=== PATIENT | female | born 1955 | race Caucasian/White ===

== ENCOUNTER → 2017-02-17 | Outpatient (CLI) | payer BC ==
[~2017-02-17] MED LIST: ALLEGRA-D1 TAB.SR1 PO; ALLERGY SHOTS; ASTELIN137 MCG INH; CLARITIN D PO; DYMISTA NASAL S23 GM NS; NASOCORT; SINGULAIR PO; VAGIFEM10 MCG VG; ZYRTEC-D TABLE1 EACH PO
--- NOTE | ~2017-02-17 | MY11 ---
[facility] A Service of [facility] RADIOLOGY TEXT RESULTS PATIENT: HOSSEIN CARLSON LOCATION: [facility] : 57 UNIT #: [id number] AGE: [address]: LEVY BOLDEN MD SEX: F ORDER DR: [id number] [place] [id number] O MR#: [id number] Acc #: [id number] NAME: HOSSEIN CARLSON : 1955 SEX: F STUDY DATE/TIME: 02/17/2017 8:39 UNIT: [facility] ROOM: STUDY DESCRIPTION: MY Mammogram Screening Dig Hardy Attending Physician: Levy Bolden M.D. Referring Physician: Levy Bolden M.D. Ordering Physician: Levy Bolden M.D. Primary Care Physician: Mei Jean-Baptiste M.D. MEDICAL IMAGING REPORT This report is preliminary unless electronic signature is present. EXAM Digital screening mammogram with CAD. INDICATION Routine screening. PROCEDURE Bilateral CC and MLO views obtained on a digital mammography unit. FDA-approved CAD device was utilized. COMPARISON STUDIES 06/19/2015 and 06/08/2012 FINDINGS Scattered fibroglandular density. No dominant mass. No suspicious calcification. IMPRESSION Negative screening mammogram. Screening interval in 1 year is suggested. Patients over the age of 40 are entered into a reminder system with target due date for the next mammogram. A result letter will also be sent to the patient. BIRADS: 1 Negative Dictated by... Edwin Wood M.D. THIS IS AN ELECTRONICALLY VERIFIED REPORT [facility] A Service [facility] RADIOLOGY TEXT RESULTS PATIENT: HOSSEIN CARLSON LOCATION: [facility] : 57 UNIT #: [id number] AGE: [address]: LEVY BOLDEN MD SEX: F ORDER DR: Edwin Wood M.D. at 02/20/2017 7:41 AM ROBBY/pieter TD: 02/17/2017 11:23 JOB #: [id number] MEDICAL IMAGING REPORT Page 1 of 1
== END | disposition home or self-care (01) ==
LOC: SMAM 08:15
DX: Z12.31 Encounter for screening mammogram for malignant neoplasm of breast (principal)
CPT/HCPCS: G0202

== ENCOUNTER 2017-06-03 03:12 | Emergency (ER) | payer BC ==
[~2017-06-03] VITALS: Ht 154.9 cm; Wt 77.1 kg
== END 2017-06-03 04:05 | disposition home or self-care (01) ==
LOC: SED 03:12
DX: S69.92XA Unspecified injury of left wrist, hand and finger(s), initial encounter (principal); X58.XXXA Exposure to other specified factors, initial encounter; Y92.009 Unspecified place in unspecified non-institutional (private) residence as the place of occurrence of the external cause
CPT/HCPCS: 99283